=== PATIENT | female | born 1950 | race African-American/Black ===

== ENCOUNTER 2019-01-02 09:56 | Emergency (ER) | payer MEDICARE, MEDICAID ==
[~2019-01-02] VITALS: Ht 167.6 cm; Wt 70.0 kg
[~2019-01-02 09:56] MED LIST: HYDR25TA PO; RANI-655 PO; RIZA10TA26 PO
[2019-01-02] MEDS ORDERED: SODIUM CHLORIDE 0.9% 1,000 ML IV ONE (10:52)
[2019-01-02] MEDS ORDERED: KETOROLAC 30MG/ML VIAL IV STA (10:52)
[2019-01-02] MEDS ORDERED: METOCLOPRAMIDE HCL 10MG/2ML VIAL IV ONE (11:00)
[2019-01-02 13:16] VITALS: BP 133/61
== END 2019-01-02 13:20 | disposition home or self-care (01) ==
LOC: ER 09:56
DX: G43.909 Migraine, unspecified, not intractable, without status migrainosus (principal); I10 Essential (primary) hypertension; J45.909 Unspecified asthma, uncomplicated; Z98.890 Other specified postprocedural states
CPT/HCPCS: 96374; 96375; 99283; J1885; J2765; J7030